=== PATIENT | female | born 1945 | race Caucasian/White ===

== ENCOUNTER → 2017-06-13 | Outpatient (CLI) | payer OTHER | LOC: NUC 08:54 | DX: M85.89 Other specified disorders of bone density and structure, multiple sites (principal); M54.9 Dorsalgia, unspecified; Z78.0 Asymptomatic menopausal state ==

== ENCOUNTER → 2017-12-19 | Outpatient (CLI) | payer OTHER ==
[~2017-12-19] MED LIST: ELIQUIS5 MG PO; FLONASE 0.05%50 MCG NASAL; PACERONE 200 M200 M1 PO; PROTONIX40 M1 PO; TOPROL XL25 MG PO; UNICOMPLEX M TA1 TA1 PO; ZYRTEC10 M4 PO
== END ==
LOC: RAD 09:22
DX: Z12.31 Encounter for screening mammogram for malignant neoplasm of breast (principal)

== ENCOUNTER → 2018-03-29 | Outpatient (CLI) | payer OTHER ==
[2018-03-29 08:20] LABS: HEMATOCRIT 41.2 % (37.0-47.0); MCH 34.1 pg (26.0-34.0); MCHC 34.1 g/dL (28.0-37.0); MCV 100.1 fL (80.0-100.0); RBC 4.12 mil/uL (4.20-5.00); RDW 13.7 % (10.5-14.5); WBC 5.5 thou/uL (4.0-11.0)
[2018-03-29 08:29] LABS: CALCIUM 9.3 mg/dL (8.5-10.1); CREATININE 0.8 mg/dL (0.6-1.0); POTASSIUM 4.8 mmol/L (3.5-5.1)
[2018-03-29 08:35] LABS: TOTAL BILIRUBIN 0.6 mg/dL (<0.1-1.0); TOTAL PROTEIN 7.1 g/dL (6.4-8.2)
== END ==
LOC: LAB 06:35 → EDSTATUS 17:42
PROVIDERS: Internal Medicine Cardiovascular Disease
DX: I48.91 Unspecified atrial fibrillation (principal)

== ENCOUNTER 2018-04-06 06:42 | Observation (INO) | payer OTHER ==
[2018-04-06] VITALS (12 sets, daily range): BP systolic 131–148; BP diastolic 51–68
[~2018-04-06] VITALS: Ht 180.3 cm; Wt 81.6 kg
--- NOTE | ~2018-04-06 | P ---
[facility] [place] [address] PROCEDURE REPORT Name: JARROD CRAWFORD Room #: 205-[facility] Joaquina#: [id number] Admission: 04/06/18 Attend Phys: Bhupinder Shearer MD Discharge: 04/07/18 Date of : 45 Report #: [id number] THIS REPORT FOR: //name// CC: Vaibhav Shearer DATE OF SERVICE: 04/06/2018 PREOPERATIVE DIAGNOSIS: Atrial fibrillation. POSTOPERATIVE DIAGNOSIS: Atrial fibrillation. HISTORY: The patient is a 73-year-old female with a history of recurrent atrial fibrillation despite antiarrhythmic drugs and is here for an ablation. PROCEDURES: 1. AFib ablation, CPT code 98263. 2. 3D mapping, CPT code 02632. 3. Intracardiac echo, CPT code 93983. ANESTHESIA: The patient underwent general anesthesia with no anesthesia related complications. DESCRIPTION OF PROCEDURE: The patient underwent informed consent. We discussed the details of the procedure including the risks, which include but not limited to bleeding, infection, vascular damage, cardiac perforation as well as stroke or UT. She understood these risks and is willing to proceed. The patient was brought to the EP laboratory in a fasting and sedated state and prepped and draped in a sterile fashion. I then injected lidocaine to the right groin and obtained access to the right femoral vein x 3, placing an 8-Swazi, 9-Swazi and 7-Swazi short sheath using the modified Seldinger technique. Next, under fluoroscopy, I placed a decapolar catheter easily in the coronary sinus and ice catheter in the right atrium. The patient's cardiac CT scan showed that there were 2 left pulmonary veins and 2 right pulmonary veins and there appeared to be a middle vein that came off the right inferior pulmonary vein. The patient was systemically heparinized and a transseptal was performed with an SL1 sheath and a Rosanky needle. The transseptal was straightforward. I then used a [employer] Camacho Lasso catheter to obtain 3D geometry of the left atrium and then, we merged this with the intracardiac ultrasound images and the cardiac CT scan. Next, I exchanged the SL1 sheath for the cryo sheath. I then isolated the left superior pulmonary vein with 2 freezes. I then turned my attention to the left inferior pulmonary vein and this isolated after 2 freezes with evidence of entrance and exit block. The right superior pulmonary vein isolated during the first freeze and I performed two 90-second freezes in this vein as attempts were close to -50. I then turned my attention to the right [address] [address] PROCEDURE REPORT Name: JARROD CRAWFORD Room #: [address] [place] [address] Divine Kunz#: [id number] Admission: 04/06/18 Attend Phys: Bhupinder Shearer MD Discharge: 04/07/18 Date of : 45 Report #: [id number] inferior pulmonary vein and this vein isolated with a single freeze at 40 seconds. I performed a single freeze at 3 minutes duration. There was never any phrenic nerve compromise while isolating the right-sided veins as evidenced by phrenic nerve pacing from the decapolar catheter placed in the subclavian. Next, all veins were reinterrogated and they remained isolated. As such, the procedure was concluded. Intracardiac ultrasound was utilized to verify the absence of an effusion. The patient received systemic protamine and once ACT was within acceptable range, catheters and sheaths were pulled and hemostasis was obtained. The patient awoke neurologically and hemodynamically intact. No complications and no significant bleeding. Pre-ablation, the patient was in sinus rhythm. Post-ablation remained in sinus rhythm as well. CONCLUSIONS: 1. Successful AFib ablation with isolation of the 4 pulmonary veins. 2. There was also evidence of isolation of the right middle vein. <ELECTRONICALLY SIGNED> By: Bhupinder Shearer MD 04/07/18 1534 1034 1245 Bhupinder Shearer MD /nt
[2018-04-06] MEDS ORDERED: PACERONE 200 M200 M1 PO (07:16)
[2018-04-06] MEDS ORDERED: ZYRTEC10 M4 PO (07:17)
[2018-04-06] MEDS ORDERED: ELIQUIS5 MG PO (07:17)
[2018-04-06] MEDS ORDERED: FLONASE 0.05%50 MCG NASAL (07:17)
[2018-04-06] MEDS ORDERED: UNICOMPLEX M TA1 TA1 PO (07:18)
[2018-04-06] MEDS ORDERED: TOPROL XL25 MG PO (07:18)
[2018-04-06] MEDS ORDERED: PROTONIX40 M1 PO (07:19)
[2018-04-06 07:38] LABS: ABSOLUTE NEUTROPHILS 3.4 thou/uL (1.4-8.2); BASOPHILS 1.2 % (0.0-2.0); EOSINOPHILS 6.3 % (0.0-3.0); HEMATOCRIT 40.4 % (37.0-47.0); HEMOGLOBIN 13.8 gm/dL (12.0-15.0); LYMPHOCYTES 24.7 % (24.0-44.0); MCH 33.7 pg (26.0-34.0); MCHC 34.1 g/dL (28.0-37.0); MONOCYTES 10.1 % (1.0-8.0); PLATELET COUNT 269 thou/uL (150-400); POLYS 57.7 % (36.0-66.0); RBC 4.08 mil/uL (4.20-5.00); RDW 13.5 % (10.5-14.5); WBC 5.8 thou/uL (4.0-11.0)
[2018-04-06 07:46] LABS: CALCIUM 9.2 mg/dL (8.5-10.1); CREATININE 0.9 mg/dL (0.6-1.0)
[2018-04-06 07:52] LABS: ALBUMIN 3.7 g/dL (3.4-5.0); TOTAL BILIRUBIN 0.5 mg/dL (<0.1-1.0); TOTAL PROTEIN 6.8 g/dL (6.4-8.2)
[2018-04-06 07:53] LABS: APTT 24.9 Seconds (24.5-32.8); PROTIME 10.2 Seconds (9.3-11.4)
[2018-04-07 04:57] VITALS: BP 134/72
[2018-04-07 07:35] VITALS: BP 140/63
[2018-04-07 10:48] VITALS: BP 140/63
== END 2018-04-07 11:27 | disposition home or self-care (01) ==
LOC: CATH 06:42 → 2N 06:46 → CATH 15:46 → 2N 04-07 11:27
PROVIDERS: Internal Medicine Cardiovascular Disease
DX: I48.0 Paroxysmal atrial fibrillation (principal); E78.00 Pure hypercholesterolemia, unspecified; I10 Essential (primary) hypertension; K21.9 Gastro-esophageal reflux disease without esophagitis; Z87.891 Personal history of nicotine dependence; Z72.89 Other problems related to lifestyle; Z98.890 Other specified postprocedural states
CPT/HCPCS: 62110; 62900; 70005

== ENCOUNTER → 2018-07-20 | Outpatient (CLI) | payer OTHER ==
[2018-07-20] VITALS (13 sets, daily range): BP systolic 151–187; BP diastolic 70–89
[~2018-07-20] VITALS: Ht 177.8 cm; Wt 81.6 kg
--- NOTE | ~2018-07-20 | PATH ---
[facility] [place] [address] PATHOLOGY RPT PROCEDURE Name: JARROD CRAWFORD Room #: REG [facility]..#: [id number] Admission: 07/20/18 Date of : 45 Discharge: Report #: [id number] Path Case #: [id number] Note [facility] Accession Number: [id number] TESTS RESULT FLAG UNITS REF RANGE LAB Clinician Provided Cytology Information No. of containers..01 Other (Miscellaneous) Source: 01 RT LOWER LOBER DIAGNOSIS: [A] 02 RIGHT LOWER LOBE, FINE NEEDLE ASPIRATION SUSPICIOUS FOR MALIGNANCY. THIS INTERPRETATION INCLUDES EVALUATION OF A CELL BLOCK. NUMEROUS GROUPS OF ATYPICAL CELLS, SEE COMMENT: Comment: Examination shows scattered groups of atypical cells in three dimensional clusters. The nuclei show show subtle atypia. Smears performed have most cells present with much air-drying artifact. These cells are similar to the ones noted on biopsy tissue designated "right lower lobe mass", [id number]. Findings noted in this sample are likely suspicious for adenocarcinoma. Please refer to a separate report for details on the biopsy tissue. Signed out by: 02 Gogo Aleman MD, Pathologist NPI- [id number] Performed by: Manasa Buenrostro, Audio Visual Equipment Rental Clerk ([facility]) Gross description: 01 19ML, PINK, CLEAR /LCS FLAG LEGEND: L-Low Normal,H-High Normal,LL-Alert Low,HH-Alert High <-Panic Low,>-Panic High,A-Abnormal,AA-Critical Abnormal Performed at: [address] [place] [address] Ki Robertson MD, [address] [address] Gogo Aleman MD, Performed at: [address], [place], [place] [id number] MD Ki Robertson MD Phone: [phone]
--- NOTE | ~2018-07-20 | PATH ---
[facility] [place] [address] PATHOLOGY RPT PROCEDURE Name: JARROD CRAWFORD Room #: REG SUNI Kunz#: [id number] Admission: 07/20/18 Date of : 45 Discharge: Report #: [id number] Path Case #: [id number] [facility] Accession Number: [id number] . 01 Material submitted: . RIGHT LOWER LOBE LUNG MASS . 01 Clinical history: . Right lower lobe mass . 02 Diagnosis: Lung, right lower lobe mass, needle core biopsy: - ADENOCARCINOMA WITH LEPIDIC FEATURES AND FOCAL PAPILLARY PATTERN. (IUV:shay; 07/21/2018) QMS/07/21/2018 . 02 Comment: Scattered rare areas highly suspicious for invasion are identified. The needle core biopsy tissue predominantly is comprised of an adenocarcinoma of lepidic pattern. . Co-review: Dr. Torie Burton . Findings are telephoned to Dr. Romero's nurse, MsPatrick Leslie, at 1:20 p.m. on 07/21/2018. . (IUV:shay; 07/21/2018) . 02 Electronically signed: . Gogo Aleman MD, Pathologist NPI- [id number] . 01 Gross description: . Received in formalin labeled "Jarrod Crawford, lung BX," are 4 distinct needle cores of lara soft tissue any from 0.2 to 0.7 cm in length and measuring less than 0.1 cm each in diameter. The specimen is submitted entirely in cassette A1 and A2. (TSD; 07/20/2018) TOB/TOB . 02 Pathologist provided ICD-10: C34.31 . 02 CPT . 730320 Specimen Comment: A courtesy copy of this report has been sent to Specimen Comment: [phone], , [place] [address] PATHOLOGY RPT PROCEDURE Name: JARROD CRAWFORD Room #: REG CLI Joaquina#: [id number] Admission: 07/20/18 Date of : 45 Discharge: Report #: [id number] Path Case #: [id number] Specimen Comment: Report sent to , DR GREGORY / DR CONNOR Performed at: 01 [facility] [place] [address], [place], [place] [address] MD Ki Robertson MD Phone: [phone] Performed at: [address] [id number] MD Gogo Aleman MD Phone: [phone]
[2018-07-20 08:43] LABS: HEMATOCRIT 41.1 % (37.0-47.0); MCH 33.1 pg (26.0-34.0); MCV 97.5 fL (80.0-100.0); RBC 4.22 mil/uL (4.20-5.00); RDW 13.3 % (10.5-14.5); WBC 5.4 thou/uL (4.0-11.0)
[2018-07-20 08:53] LABS: CALCIUM 9.1 mg/dL (8.5-10.1); CREATININE 0.7 mg/dL (0.6-1.0); POTASSIUM 3.8 mmol/L (3.5-5.1)
[2018-07-20 08:59] LABS: APTT 23.6 Seconds (24.5-32.8)
== END | disposition home or self-care (01) ==
LOC: CAT 07:52
PROVIDERS: Radiology Vascular & Interventional Radiology
DX: C34.31 Malignant neoplasm of lower lobe, right bronchus or lung (principal); I10 Essential (primary) hypertension; I48.91 Unspecified atrial fibrillation; K21.9 Gastro-esophageal reflux disease without esophagitis; E78.5 Hyperlipidemia, unspecified; Z79.01 Long term (current) use of anticoagulants; Z85.828 Personal history of other malignant neoplasm of skin; Z87.19 Personal history of other diseases of the digestive system; Z79.899 Other long term (current) drug therapy; Z98.890 Other specified postprocedural states; Z87.891 Personal history of nicotine dependence

== ENCOUNTER → 2018-07-31 | Outpatient (CLI) | payer OTHER | LOC: ULTRA 11:33 | DX: E04.2 Nontoxic multinodular goiter (principal); R91.8 Other nonspecific abnormal finding of lung field; I10 Essential (primary) hypertension; K21.9 Gastro-esophageal reflux disease without esophagitis ==

== ENCOUNTER → 2018-08-17 | Outpatient (CLI) | payer OTHER | LOC: MRI 09:25 | DX: I67.82 Cerebral ischemia (principal) ==

== ENCOUNTER 2018-09-07 13:24 | Inpatient (IN) | payer OTHER ==
[~2018-09-07] VITALS: Ht 177.8 cm; Wt 81.6 kg
--- NOTE | ~2018-09-07 | HC ---
[facility] [place] [address] CONSULTATION Name: JARROD CRAWFORD Room #: 222-P [facility] IN M.R.#: [id number] Admission: 09/07/18 Attend Phys: Trina Kirkpatrick Discharge: Date of : 45 Report #: [id number] THIS REPORT FOR: //name// CC: Trina Virk DATE OF SERVICE: 09/08/2018 PRIMARY CARE PHYSICIAN: Vaibhav Virk DO. REFERRING PHYSICIAN: Dr. Almodovar. REASON FOR REFERRAL: Pneumonia. HISTORY OF PRESENT ILLNESS: The patient is a 73-year-old white female who was electively admitted with increasing cough, dyspnea, productive of purulent sputum. Chest x-ray shows bibasilar patchy infiltrates. The patient is known to Dr. Romero. She was originally diagnosed with adenocarcinoma of the right lower lobe. CT chest performed 03/29/2018 showed a 1 x 1.8 cm noncalcified soft tissue density in the right lower lobe. Another soft tissue density measuring 0.8 x 2.6 cm nodule seen in the left lower lobe. Needle biopsy revealed adenocarcinoma, papular and patent. She has been followed by Dr. Fitzpatrick who is currently undergoing investigative study for possible treatment. Plans are to do genetic studies prior to treatment. She was in her usual state of health until few days prior to presentation. She started to develop congestion, dyspnea, cough productive of purulent sputum. Chest x-ray as mentioned above. 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 History of atrial fibrillation, allergic rhinitis, diverticulosis, gastroesophageal reflux disease, hyperlipidemia, hypertension, tubular adenoma of the colon. PAST SURGICAL HISTORY: Notable for prior left biopsy pathology felt to be unremarkable, ablation for atrial fibrillation, cardioversion x 2, hemorrhoidectomy, spinal cord decompression and bilateral tubal ligation. ALLERGIES: None to medications. HOME MEDICATIONS: Reviewed. This include Eliquis, Zyrtec, vitamin supplements, Florinef, fluticasone nasal spray, Toprol-XL, multivitamins, omega-3, Protonix. FAMILY HISTORY: Notable for multiple sclerosis in a sister, myocardial [facility] [address] [place] [address] CONSULTATION Name: JARROD CRAWFORD Room #: 222-P [facility] IN M.R.#: [id number] Admission: 09/07/18 Attend Phys: Trina Kirkpatrick Discharge: Date of : 45 Report #: [id number] infarction in a sister, mother and father . SOCIAL HISTORY: Has smoked about a pack a day for 8 years, quit in 1975. She drinks socially. REVIEW OF SYSTEMS: As mentioned above, otherwise 10-point system review negative. PHYSICAL EXAMINATION: GENERAL: She is awake, alert, in no apparent distress. VITAL SIGNS: Temperature 98 degrees Fahrenheit, pulse is 90, respiratory rate is 19, blood pressure 130/55 mmHg, saturation 98%. HEENT: Normocephalic, atraumatic. NECK: Supple, without lymphadenopathy or thyromegaly. CHEST: Breath sounds are decreased bilaterally, coarse breath sounds bilaterally. CARDIOVASCULAR: Normal S1, S2. There are no murmurs or gallop. There is no JVD. There is no carotid bruit. Pulses are 2+/4+ bilaterally. ABDOMEN: Soft, nontender, no organomegaly or masses felt. GENITOURINARY: Deferred. RECTAL: Deferred. EXTREMITIES: There is no edema, cyanosis or clubbing. LABORATORY DATA: Chest x-ray again shows patchy bibasilar infiltrates. Influenza A and B swab is negative. Electrolytes are normal. Liver enzymes are normal. WBC 14,500, hemoglobin is normal, platelets are normal, no evidence of bandemia. IMPRESSION: 1. Progressive productive cough, bibasilar infiltrates in this 73-year-old white female. Symptoms suggest probable viral upper respiratory tract infection. Cannot rule out pneumonia. 2. Adenocarcinoma of the lung, papillary pattern, recent CT needle biopsy, prior CT chest showed nodule involving the right lower lobe, left lower lobe. Plans are for further investigational mutation studies prior to proceeding with treatment. 3. Atrial fibrillation. 4. Gastroesophageal reflux disease. 5. Hypertension. RECOMMENDATION: Agree with current plans. Broad spectrum antibiotics, decongestants, DVT and GI prophylaxis. She will need to follow up with oncologist once she is improved for further ongoing evaluation and treatment soon. [address] [address] CONSULTATION Name: JARROD CRAWFORD Room #: 222-P ADM IN M.R.#: [id number] Admission: 09/07/18 Attend Phys: Trina Kirkpatrick Discharge: Date of : 45 Report #: [id number] Thank you for this consultation. <ELECTRONICALLY SIGNED> By: Jerome Alvarez MD 09/09/18 1538 1522 0216 Jerome Alvarez MD /nt
[2018-09-07 14:00] VITALS: BP 156/67
[2018-09-07] MEDS ORDERED: OMEGA-31000 M1 PO (14:20)
[2018-09-07 15:09] LABS: ABSOLUTE NEUTROPHILS 12.7 thou/uL (1.4-8.2); BASOPHILS 0.1 % (0.0-2.0); HEMATOCRIT 38.6 % (37.0-47.0); HEMOGLOBIN 13.3 gm/dL (12.0-15.0); LYMPHOCYTES 4.8 % (24.0-44.0); MCH 33.2 pg (26.0-34.0); MCHC 34.4 g/dL (28.0-37.0); MCV 96.7 fL (80.0-100.0); MONOCYTES 7.1 % (1.0-8.0); PLATELET COUNT 269 thou/uL (150-400); RBC 3.99 mil/uL (4.20-5.00); RDW 13.2 % (10.5-14.5); WBC 14.5 thou/uL (4.0-11.0)
[2018-09-07 15:19] LABS: URINE BILIRUBIN NEGATIVE (Negative); URINE BLOOD NEGATIVE (Negative); URINE CLARITY CLEAR; URINE COLOR YELLOW; URINE GLUCOSE-RANDOM* NEGATIVE (Negative); URINE KETONES 2+ (Negative); URINE LEUKOCYTES-REFLEX NEGATIVE (Negative); URINE NITRITE-REFLEX NEGATIVE (Negative); URINE PROTEIN (DIPSTICK) NEGATIVE (Negative); URINE UROBILINOGEN 0.2 E.U./dl (0.2-1.0)
[2018-09-07 15:32] VITALS: BP 156/74
[2018-09-07 15:50] LABS: ALBUMIN 3.6 g/dL (3.4-5.0); CALCIUM 9.1 mg/dL (8.5-10.1); CREATININE 0.8 mg/dL (0.6-1.0); MAGNESIUM 1.7 mg/dL (1.8-2.4); POTASSIUM 3.5 mmol/L (3.5-5.1); TOTAL BILIRUBIN 0.7 mg/dL (<0.1-1.0); TOTAL PROTEIN 7.5 g/dL (6.4-8.2)
[2018-09-07] MEDS ORDERED: LUTEIN-ZEAXANT1 EACH PO (17:32)
[2018-09-07 20:45] VITALS: BP 125/55
[2018-09-07 22:37] VITALS: BP 125/55
[2018-09-08 00:25] VITALS: BP 117/46
[2018-09-08 04:28] VITALS: BP 134/55
[2018-09-08 08:10] VITALS: BP 133/55
[2018-09-08 20:28] VITALS: BP 149/81
[2018-09-09 07:46] VITALS: BP 149/76
[2018-09-09 19:25] VITALS: BP 150/59
[2018-09-10 07:23] VITALS: BP 167/81
[2018-09-10 22:30] VITALS: BP 151/73
[2018-09-11 08:12] LABS: HEMATOCRIT 37.6 % (37.0-47.0); MCH 33.3 pg (26.0-34.0); MCHC 34.4 g/dL (28.0-37.0); MCV 96.7 fL (80.0-100.0); RBC 3.89 mil/uL (4.20-5.00); RDW 13.6 % (10.5-14.5); WBC 14.2 thou/uL (4.0-11.0)
[2018-09-11 08:26] LABS: ALBUMIN 3.4 g/dL (3.4-5.0); CALCIUM 9.3 mg/dL (8.5-10.1); CREATININE 0.8 mg/dL (0.6-1.0); POTASSIUM 3.6 mmol/L (3.5-5.1); TOTAL BILIRUBIN 0.3 mg/dL (<0.1-1.0); TOTAL PROTEIN 7.6 g/dL (6.4-8.2)
[2018-09-11 08:39] VITALS: BP 143/69
[2018-09-11] MEDS ORDERED: LEVAQUIN 750 M750 MG PO (10:29)
[2018-09-11] MEDS ORDERED: VENTOLIN HFA 1818 GM INH (10:30)
[2018-09-11 13:03] VITALS: BP 143/68
== END 2018-09-11 14:38 | disposition home or self-care (01) | DRG 871 ==
LOC: 2N 13:24 → SICU 13:24 → ENTRNSPT 09-11 14:09 → EDTRNSPTSTS 09-11 14:11 → SICU 09-11 14:38
PROVIDERS: Hospitalist; Nurse Practitioner
DX: A41.9 Sepsis, unspecified organism (principal); J18.9 Pneumonia, unspecified organism; C34.92 Malignant neoplasm of unspecified part of left bronchus or lung; C34.91 Malignant neoplasm of unspecified part of right bronchus or lung; I48.91 Unspecified atrial fibrillation; I11.0 Hypertensive heart disease with heart failure; K57.90 Diverticulosis of intestine, part unspecified, without perforation or abscess without bleeding; K21.9 Gastro-esophageal reflux disease without esophagitis; E78.5 Hyperlipidemia, unspecified; I50.9 Heart failure, unspecified; E83.42 Hypomagnesemia; Z82.0 Family history of epilepsy and other diseases of the nervous system; Z82.49 Family history of ischemic heart disease and other diseases of the circulatory system; Z87.891 Personal history of nicotine dependence; Z79.899 Other long term (current) drug therapy
CPT/HCPCS: 10797; 15002

== ENCOUNTER → 2018-12-21 | Outpatient (CLI) | payer OTHER ==
[~2018-12-21] MED LIST changes: +LEVAQUIN 750 M750 MG PO; +LUTEIN-ZEAXANT1 EACH PO; +OMEGA-31000 M1 PO; +VENTOLIN HFA 1818 GM INH
== END ==
LOC: RAD 14:34
DX: Z12.31 Encounter for screening mammogram for malignant neoplasm of breast (principal)

== ENCOUNTER → 2019-12-31 | Outpatient (CLI) | payer OTHER | LOC: RAD 10:50 | DX: Z12.31 Encounter for screening mammogram for malignant neoplasm of breast (principal) ==

== ENCOUNTER → 2020-01-16 | Outpatient (CLI) | payer OTHER | LOC: SJCVCIMAG 11:18 | PROVIDERS: ATTEND Internal Medicine Cardiovascular Disease | DX: I08.0 Rheumatic disorders of both mitral and aortic valves (principal); I48.0 Paroxysmal atrial fibrillation; I10 Essential (primary) hypertension; K21.9 Gastro-esophageal reflux disease without esophagitis; E78.5 Hyperlipidemia, unspecified; R94.31 Abnormal electrocardiogram [ECG] [EKG]; I48.91 Unspecified atrial fibrillation; Z87.891 Personal history of nicotine dependence; Z72.89 Other problems related to lifestyle; Z79.82 Long term (current) use of aspirin; Z79.899 Other long term (current) drug therapy ==

== ENCOUNTER → 2020-11-11 | Outpatient (CLI) | payer OTHER | LOC: SJCVC 09:55 | PROVIDERS: ATTEND Internal Medicine Cardiovascular Disease | DX: I49.8 Other specified cardiac arrhythmias (principal); I48.0 Paroxysmal atrial fibrillation; C80.1 Malignant (primary) neoplasm, unspecified; I10 Essential (primary) hypertension; E78.00 Pure hypercholesterolemia, unspecified; K21.9 Gastro-esophageal reflux disease without esophagitis; E78.5 Hyperlipidemia, unspecified; K57.90 Diverticulosis of intestine, part unspecified, without perforation or abscess without bleeding; Z87.891 Personal history of nicotine dependence ==

== ENCOUNTER → 2021-01-06 | Outpatient (CLI) | payer OTHER | LOC: BC 09:13 | PROVIDERS: ATTEND Family Medicine | DX: Z12.31 Encounter for screening mammogram for malignant neoplasm of breast (principal) ==

== ENCOUNTER 2021-06-03 10:50 | Inpatient (IN) | payer OTHER ==
[~2021-06-03] VITALS: Ht 180.3 cm; Wt 86.4 kg
--- NOTE | ~2021-06-03 | EMS ---
[address] [address] EMS Patient Care Report Name: JARROD CRAWFORD Room #: 202-P ADM IN M.R.#: [id number] Admission: 06/03/21 Attend Phys: Silas Small MD Discharge: Date of : 45 Report #: [id number] THIS REPORT FOR: //name// Report Transmitted: 06/04/2021 06:54 EMS Care Summary [facility] MED-ACT Incident [id number] @ 06/03/2021 09:58 Incident Location [address] [place] [address] Patient JARROD CRAWFORD Female, 76 Years 1945 Patient Address [address] [place] [address] Patient History Hypertension (HTN),Lung Cancer,Atrial Fibrillation, Patient Allergies No known allergies, Patient Medications Pantoprazole, Aspirin, Metoprolol, Zofran, Chief Complaint Weakness Disposition Transported No Lights/[place] Dispatch Reason Unconscious/Fainting Transported To [facility] Narrative M1145 found the pt lying in bed in no apparent distress being attended to by OPFD. Report from OPFD was that the pt has been having weakness for about 2 weeks and is unable to get up. The family contacted the pt's doctor who wanted the pt sent to [facility] for evaluation. The pt stated that [address] [address] EMS Patient Care Report Name: JARROD CRAWFORD Room #: 202-P ADM IN M.R.#: [id number] Admission: 06/03/21 Attend Phys: Silas Small MD Discharge: Date of : 45 Report #: [id number] she is unable to get out of bed and also complains of some abdominal tenderness. The pt stated that she has had the abdominal tenderness for a long time. She described the tenderness as a squeezing feeling in her stomach. The pt denies Initial Vitals @10:12P: 96,SpO2: 83,ND Suspected: false @10:39P: 95,R: 12,BP: 114/68,Glucose: 156,SpO2: 98, @10:27P: 95,R: 12,BP: 109/58,Temp: 98.3F,SpO2: 99, @10:09P: 98,R: 12,BP: 109/69,Pain: 2/10,GCS: 15,SpO2: 85,Revised Trauma: 12, Impression Generalized Weakness Procedures @10:1212-Lead ECGResponse: UnchangedSucceeded@10:27Saline Lock 10cc (20 ga) Site: Hand-RightResponse: UnchangedSucceeded@10:25Oxygen FlowRate: 4 Device: Nasal Cannula (NC) Response: UnchangedSucceeded Timeline 09:56,Call Received 09:56,Psap Call 09:58,Dispatched 09:59,En Route 10:06,On Scene 10:08,At Patient 10:09,BP: 109/69 M,PULSE: 98,RR: 12 R,SPO2: 85 Ox,ETCO2: ,BG: ,PAIN: 2,GCS: 15, 10:12,12-Lead ECG,Response: UnchangedSucceeded, 10:12,BP: / M,PULSE: 96,RR: R,SPO2: 83 Ox,ETCO2: ,BG: ,PAIN: ,GCS: , 10:25,Oxygen FlowRate: 4 Device: Nasal Cannula (NC) Response: UnchangedSucceeded, 10:26,Depart Scene 10:27,Saline Lock 10cc 20 ga Site: Hand-Right,Response: UnchangedSucceeded, 10:27,BP: 109/58 M,PULSE: 95,RR: 12 R,SPO2: 99 Ox,ETCO2: ,BG: ,PAIN: ,GCS: , 10:39,BP: 114/68 M,PULSE: 95,RR: 12 R,SPO2: 98 Ox,ETCO2: ,B,PAIN: ,GCS: , 10:48,At Destination 11:16,Call Closed Disclaimer v1.1 Copyright 2020 [employer] This EMS Care Summary contains data elements from the applicable legal record (which may be displayed differently). It is designed to provide pertinent information for the following purposes: continuity of care, clinical quality, and state data reporting. The complete legal record is available to ED staff and administrators of the receiving hospital in [employer]'s Patient Tracker. All data [address] [address] EMS Patient Care Report Name: JARROD CRAWFORD Room #: 202-P ADM IN M.R.#: [id number] Admission: 06/03/21 Attend Phys: Silas Small MD Discharge: Date of : 45 Report #: [id number] is provided "as is."
--- NOTE | ~2021-06-03 | EMS ---
[address] [address] EMS Patient Care Report Name: JARROD CRAWFORD Room #: 202-P [facility] IN M.R.#: [id number] Admission: 06/03/21 Attend Phys: Silas Small MD Discharge: 06/11/21 Date of : 45 Report #: [id number] THIS REPORT FOR: //name// Report Transmitted: 06/12/2021 17:22 EMS Care Summary [facility] MED-ACT Incident [id number] @ 06/03/2021 09:58 Incident Location [address] [place] [address] Patient JARROD CRAWFORD Female, 76 Years 1945 Patient Address [address] [place] [address] Patient History Hypertension (HTN),Lung Cancer,Atrial Fibrillation, Patient Allergies No known allergies, Patient Medications Pantoprazole, Aspirin, Metoprolol, Zofran, Chief Complaint Weakness Disposition Transported No Lights/[place] Dispatch Reason Unconscious/Fainting Transported To [facility] Narrative M1145 found the pt lying in bed in no apparent distress being attended to by OPFD. Report from OPFD was that the pt has been having weakness for about 2 weeks and is unable to get up. The family contacted the pt's doctor who wanted the pt sent to [facility] for evaluation. The pt stated that [address] [address] EMS Patient Care Report Name: JARROD CRAWFORD Room #: 202-P [facility] IN .R.#: [id number] Admission: 06/03/21 Attend Phys: Silas Small MD Discharge: 06/11/21 Date of : 45 Report #: [id number] she is unable to get out of bed and also complains of some abdominal tenderness. The pt stated that she has had the abdominal tenderness for a long time. She described the tenderness as a squeezing feeling in her stomach. The pt denies Appended: The pt denies any chest pain, shortness of breath, headaches, blurred vision, Nausea/vomiting, diarrhea, recent illness, or recent trauma. The pt was transported to [facility] in a position of comfort. The pt had no new complaints en route and with hand off to [facility] ED RN. The pt was moved from EMS cot to ED bed via a sheet drag from EMS Cot. Appended: In the previous addendum the narrative was supposed to say the pt was transported to [facility] in a position of comfort. The pt had no new complaints en route and with hand off to [facility] ED RN. The pt was moved from EMS cot to ED bed via a sheet drag from EMS cot. Initial Vitals @10:12P: 96,SpO2: 83,NM Suspected: false @10:39P: 95,R: 12,BP: 114/68,Glucose: 156,SpO2: 98, @10:27P: 95,R: 12,BP: 109/58,Temp: 98.3F,SpO2: 99, @10:09P: 98,R: 12,BP: 109/69,Pain: 2/10,GCS: 15,SpO2: 85,Revised Trauma: 12, Impression Generalized Weakness Procedures @10:1212-Lead ECGResponse: UnchangedSucceeded@10:27Saline Lock 10cc (20 ga) Site: Hand-RightResponse: UnchangedSucceeded@10:25Oxygen FlowRate: 4 Device: Nasal Cannula (NC) Response: UnchangedSucceeded Timeline 09:56,Call Received 09:56,Psap Call 09:58,Dispatched 09:59,En Route 10:06,On Scene 10:08,At Patient 10:09,BP: 109/69 M,PULSE: 98,RR: 12 R,SPO2: 85 Ox,ETCO2: ,BG: ,PAIN: 2,GCS: 15, 10:12,12-Lead ECG,Response: UnchangedSucceeded, 10:12,BP: / M,PULSE: 96,RR: R,SPO2: 83 Ox,ETCO2: ,BG: ,PAIN: ,GCS: , 10:25,Oxygen FlowRate: 4 Device: Nasal Cannula (NC) Response: UnchangedSucceeded, 10:26,Depart Scene 10:27,Saline Lock 10cc 20 ga Site: Hand-Right,Response: UnchangedSucceeded, 10:27,BP: 109/58 M,PULSE: 95,RR: 12 R,SPO2: 99 Ox,ETCO2: ,BG: ,PAIN: ,GCS: , 10:39,BP: 114/68 M,PULSE: 95,RR: 12 R,SPO2: 98 Ox,ETCO2: ,B,PAIN: ,GCS: , [facility] [address] [place] [address] EMS Patient Care Report Name: JARROD CRAWFORD Room #: 202-P [facility] IN M.R.#: [id number] Admission: 06/03/21 Attend Phys: Silas Small MD Discharge: 06/11/21 Date of : 45 Report #: [id number] 10:48,At Destination 11:16,Call Closed Disclaimer v1.1 Copyright 2020 [employer] This EMS Care Summary contains data elements from the applicable legal record (which may be displayed differently). It is designed to provide pertinent information for the following purposes: continuity of care, clinical quality, and state data reporting. The complete legal record is available to ED staff and administrators of the receiving hospital in [employer]'s Patient Tracker. All data is provided "as is."
[2021-06-03 10:51] VITALS: BP 115/50
[2021-06-03 11:40] LABS: ABSOLUTE NEUTROPHILS 4.4 thou/uL (1.4-8.2); BASOPHILS 0.1 % (0.0-2.0); EOSINOPHILS 1.1 % (0.0-3.0); HEMATOCRIT 21.6 % (37.0-47.0); HEMOGLOBIN 7.4 gm/dL (12.0-15.0); LYMPHOCYTES 12.4 % (24.0-44.0); MCH 34.4 pg (26.0-34.0); MCHC 34.1 g/dL (28.0-37.0); MONOCYTES 12.2 % (1.0-8.0); POLYS 74.2 % (36.0-66.0); RBC 2.14 mil/uL (4.20-5.00); RDW 14.9 % (10.5-14.5)
[2021-06-03 11:52] LABS: CALCIUM 8.8 mg/dL (8.5-10.1); CREATININE 1.5 mg/dL (0.6-1.0); POTASSIUM 4.6 mmol/L (3.5-5.1)
[2021-06-03 12:02] LABS: ALBUMIN 2.4 g/dL (3.4-5.0); TOTAL BILIRUBIN 0.6 mg/dL (0.2-1.0); TOTAL PROTEIN 6.4 g/dL (6.4-8.2); URIC ACID* 7.4 mg/dL (2.6-6.0)
[2021-06-03 12:04] LABS: TROPONIN-I 1.02 ng/mL (<0.06)
[2021-06-03 12:30] LABS: PLATELET COUNT 46 thou/uL (150-400)
[2021-06-03 12:31] LABS: PLATELET ESTIMATE DECREASED
--- NOTE | 2021-06-03 13:09 | EKG ---
[place] [place] [address] ELECTROCARDIOGRAM REPORT Name: JARROD CRAWFORD [id number] Admission: 06/03/21 Attend Phys: Discharge: Date of : 45 Report #: [id number] [facility] ED Test Date: 2021-06-03 Test Time: 11:57:26 Pat Name: JARROD CRAWFORD Department: Room: Gender: F Outfitter Cabin: ernst : 1945 Requested By: Alcides Penn Order Number: [id number] MD: Lebron Marcus Measurements Intervals [place] Rate: 87 P: 51 FL: 173 QRS: 23 QRSD: 76 T: 59 QT: 350 QTc: 421 Interpretive Statements Sinus rhythm Atrial premature complexes Abnormal R-wave progression, early transition Baseline wander in lead(s) III,aVL Compared to ECG 11/13/2010 11:44:55 Atrial premature complex(es) now present Electronically Signed On 06-03-2021 13:08:54 CDT by Lebron Marcus [email or web address] <ELECTRONICALLY SIGNED> By: Lebron Marcus MD, [facility] 06/03/21 1308 1157 1157 Lebron Marcus MD, [facility] /EPI
[2021-06-03 13:11] LABS: URINE BILIRUBIN NEGATIVE (Negative); URINE BLOOD NEGATIVE (Negative); URINE CLARITY CLEAR; URINE COLOR YELLOW; URINE GLUCOSE-RANDOM* NEGATIVE (Negative); URINE KETONES NEGATIVE (Negative); URINE LEUKOCYTES-REFLEX NEGATIVE (Negative); URINE NITRITE-REFLEX NEGATIVE (Negative); URINE PROTEIN (DIPSTICK) NEGATIVE (Negative); URINE UROBILINOGEN 0.2 E.U./dl (0.2-1.0)
[2021-06-03 16:03] VITALS: BP 122/46
--- NOTE | 2021-06-03 16:10 | NUR ---
CARDIOLOGY ELECTRICAL POWER ENGINEER AT BEDSIDE
[2021-06-03 16:41] VITALS: BP 117/42
[2021-06-03 17:54] LABS: % SATURATION 28 % (20-39); IRON 53 ug/dL (50-170); TIBC 187 ug/dL (250-450)
[2021-06-03 18:18] LABS: FOLIC ACID 53.6 ng/mL (8.6-58.9)
[2021-06-03 19:55] VITALS: BP 128/44
[2021-06-03 23:38] VITALS: BP 134/54
[2021-06-04 03:01] LABS: CALCIUM 8.2 mg/dL (8.5-10.1); CREATININE 1.2 mg/dL (0.6-1.0); MAGNESIUM 2.2 mg/dL (1.8-2.4); POTASSIUM 4.5 mmol/L (3.5-5.1)
[2021-06-04 03:07] LABS: HEMATOCRIT 22.1 % (37.0-47.0); HEMOGLOBIN 7.4 gm/dL (12.0-15.0); MCH 35.3 pg (26.0-34.0); MCHC 33.6 g/dL (28.0-37.0); MCV 105.3 fL (80.0-100.0); PLATELET COUNT 69 thou/uL (150-400); RDW 15.7 % (10.5-14.5)
[2021-06-04 03:32] VITALS: BP 136/69
[2021-06-04 06:23] LABS: ABSOLUTE NEUTROPHILS 4.7 thou/uL (1.4-8.2); MACROCYTES 1+; PLATELET ESTIMATE DECREASED
[2021-06-04 06:24] LABS: ANISOCYTOSIS 1+; POIKILOCYTOSIS 1+
[2021-06-04 08:28] VITALS: BP 120/48
--- NOTE | 2021-06-04 09:26 | 2DMMODE ---
[facility] [place] [address] 2 D/M-MODE ECHOCARDIOGRAM Name: JARROD CRAWFORD Room #: 202-P ADM IN M.R.#: [id number] Admission: 06/03/21 Attend Phys: Silas Small MD Discharge: Date of : 45 Report #: [id number] THIS REPORT FOR: cc: Vaibhav Virk Louis D. DO Lammoglia, Francisco J. MD ~ APPROVED REPORT Study performed: 06/04/2021 08:40:08 EXAM: Comprehensive 2D, Doppler, and color-flow Echocardiogram Patient Location: Bedside Room #: 202 Status: routine BSA: 2.03 HR: 96 bpm BP: 136/69 mmHg Rhythm: NSR Other Information Study Quality: Good Indications Atrial Fibrillation Elevated troponin. Hx: Afib/ablation, HTN, HLP. 2D Dimensions RVDd: 31.15 mm IVSd: 9.98 (7-11mm) LVOT Diam: 19.89 (18-24mm) LVDd: 41.26 mm PWd: 9.44 (7-11mm) Ascending Ao: 27.66 (22-36mm) LVDs: 27.23 (25-40mm) Left Atrium: 37.24 (27-40mm) Aortic Root: 30.34 mm Volumes Left Atrial Volume (Systole) Single Plane 4CH: 46.13 mL Single Plane 2CH: 45.33 mL LA ESV Index: 23.00 mL/m2 Aortic Valve AoV Peak Jamal.: 1.80 m/s AO Peak Gr.: 12.90 mmHg LVOT Max P.63 mmHg [facility] [address] [address] 2 D/M-MODE ECHOCARDIOGRAM Name: JARROD CRAWFORD Room #: 202-P [facility] IN [facility].#: [id number] Admission: 06/03/21 Attend Phys: Silas Small MD Discharge: Date of : 45 Report #: [id number] LVOT Max V: 1.38 m/s ROBERT Vmax: 2.39 cm2 Mitral Valve E/A Ratio: 1.2 MV Decel. Time: 190.05 ms MV E Max Jamal.: 0.97 m/s MV A Jamal.: 0.82 m/s MV PHT: 55.11 ms IVRT: 51.90 ms Pulmonary Valve PV Peak Jamal.: 1.20 m/s PV Peak Gr.: 5.73 mmHg Pulmonary Vein P Vein S: 0.39 m/s P Vein D: 0.31 m/s P Vein S/D Ratio: 1.26 Tricuspid Valve TR Peak Jamal.: 3.15 m/s RAP Estimate: 5.00 mmHg TR Peak Gr.: 40.00 mmHg PA Pressure: 45.00 mmHg Left Ventricle The left ventricle is normal size. There is normal LV segmental wall motion. There is normal left ventricular wall thickness. Left ventricular systolic function is normal. LVEF is 65%. Moderate diastolic dysfunction is present (pseudonormal filling). Right Ventricle The right ventricle is normal size. The right ventricular systolic function is normal. Atria The left atrium size is normal. The right atrium size is normal. Aortic Valve The aortic valve is normal in structure. No aortic regurgitation is present. There is no aortic valvular stenosis. Mitral Valve The mitral valve is normal in structure. Mild mitral regurgitation. No evidence of mitral valve stenosis. [facility] [address] [place] [address] 2 D/M-MODE ECHOCARDIOGRAM Name: JARROD CRAWFORD Room #: 202-P [facility] IN M.R.#: [id number] Admission: 06/03/21 Attend Phys: Silas Small MD Discharge: Date of : 45 Report #: [id number] Tricuspid Valve The tricuspid valve is normal in structure. Mild tricuspid regurgitation. Estimated PAP is 45mmHg. Pulmonic Valve The pulmonary valve is normal in structure. There is no pulmonic valvular regurgitation. Great Vessels The aortic root is normal in size. The ascending aorta is normal in size. IVC is normal in size and collapses >50% with inspiration. Pericardium There is no pericardial effusion. <Conclusion> The left ventricle is normal size. There is normal LV segmental wall motion. LVEF is 65%. The aortic valve is normal in structure. The mitral valve is normal in structure. Mild mitral regurgitation. The tricuspid valve is normal in structure. Mild tricuspid regurgitation. Estimated PAP is 45mmHg. The pulmonary valve is normal in structure. The aortic root is normal in size. There is no pericardial effusion. <ELECTRONICALLY SIGNED> By: Darius Lunsford MD 06/04/21925 5 5 Darius Lunsford MD /INF
[2021-06-04 10:43] LABS: APTT 23.9 Seconds (24.5-32.8); INR 1.2
--- NOTE | 2021-06-04 14:00 | NUR ---
ASSESSMENT: CM REVIEWED CHART AND ATTEMPTED TO MEET WITH PATIENT AT THE BEDSIDE BUT CONTINUES TO FALL ASLEEP. CM CONTACTED PATIENTS TO DISCUSS FURTHER INFORMATION. PT WAS ADMITTED DUE TO POSSIBLE NSTEMI,DEBILITY AND WEAKNESS, ANEMIA, HX OF AFIB. PT HAS HX OF METASTATIC LUNG CANCER AND RECEIVING CHEMO. PT IS HAS ANEMIA AND GETTING A TRANSFUSION OF ONE UNIT PRBC. PT LIVES IN A HOUSE WITH HER . PT WAS PRETTY INDEPENDENT A FEW WEEKS PRIOR BUT GETTING PROGRESSIVELY WEAK. REPORTS SHE HAS A CANE AND WALKER AT HOME. PT DOES NOT CURRENTLY HAVE HOME HEALTH AT THIS TIME AND HE DENIES HER HAVING A POST ACUTE CARE STAY IN THE PAST. CM DISCUSSED PATIENT WILL LIKELY NEED HH VS POST ACUTE CARE STAY AT DISCHARGE. PTS STATING PATIENT JUST GOT HERE AND WE WILL DISCUSS ONCE SHE IS FEELING BETTER. CM WILL CONTINUE TO FOLLOW TO ASSIST NEEDED.
[2021-06-04 15:12] VITALS: BP 140/47; BP 151/78
[2021-06-04 15:26] VITALS: BP 145/55
[2021-06-04 16:42] VITALS: BP 141/58
[2021-06-04 19:39] VITALS: BP 148/47
--- NOTE | 2021-06-04 21:05 | NUR ---
PATIENT REMAINS SINUS TACH ON THE MONITOR. DROWSY THROUGH OUT THE THE DAY, REMAINS WEAK. WORKED WITH PT/OT. VOICES CONSTANT PAIN. PAIN MEDICATIONS GIVEN PER EMAR. 1 UNIT PRBC TRANSFUSED PER ORDERS. REMAINS ON CONTINUOUS PROTONIX GTT. NEW IV STARTED IN LEFT AC FOR BLOOD TRANSFUSION.
[2021-06-05 03:47] VITALS: BP 145/70
[2021-06-05 03:48] LABS: HEMATOCRIT 24.1 % (37.0-47.0); HEMOGLOBIN 8.4 gm/dL (12.0-15.0); MCH 34.2 pg (26.0-34.0); MCHC 34.6 g/dL (28.0-37.0); RBC 2.44 mil/uL (4.20-5.00); RDW 17.2 % (10.5-14.5); WBC 6.8 thou/uL (4.0-11.0)
[2021-06-05 03:58] LABS: CALCIUM 8.3 mg/dL (8.5-10.1); CREATININE 0.8 mg/dL (0.6-1.0); POTASSIUM 4.6 mmol/L (3.5-5.1)
--- NOTE | 2021-06-05 06:46 | NUR ---
ASSESSMENTS CHARTED, MEDS CHARTED GIVEN. PATIENT RESTING IN BED DURING SHIFT. ALERT BUT DROWSY. DID NOT SLEEP WELL DURING THE SHIFT. PATIENT UNCOMFORTABLE IN BED CONSTANTLY REARRANGING HERSELF. SAYS IT IT RELATED TO METS IN THE PELVIC. KNAPP IN PLACE FOR RETENTION. UP WITH WALKER AND GAIT BELT, INCREASED WEAKNESS. PAIN CONTROL IS THE PATIENT'S PRIMARY CONCERN.OXYCODONE AND FENTANYL AVAILABLE. RECEIVED 1 UNIT PRBC YESTERDAY ON DAY SHIFT FOR LOW HBG. FALL PRECAUTIONS IN PLACE DURING SHIFT.
[2021-06-05 07:10] VITALS: BP 142/54
--- NOTE | 2021-06-05 08:22 | HC ---
[facility] [place] [address] CONSULTATION Name: JARROD CRAWFORD Room #: 202-P ADM IN M.R.#: [id number] Admission: 06/03/21 Attend Phys: Silas Small MD Discharge: Date of : 45 Report #: [id number] THIS REPORT FOR: cc: Vaibhav Virk Louis D. DO McKittrick, Richard James MD ~ cc: Silas Small MD, Jean Heredia MD, Vaibhav Virk DO, Lore Sawyer NP HISTORY OF PRESENT ILLNESS: The patient is a 76-year-old patient with a history of stage IV bronchoalveolar lung cancer who was admitted for weakness and fatigue that has been progressive. She had received her first and most recent round of carboplatin, pemetrexed, pembrolizumab on about 05/22/2021. She has a history of a bronchoalveolar lung cancer since 07/20/2018. It has been slowly progressive. Unfortunately, she was found to have brain mets, received radiation therapy that was completed on 05/12/2001. She also had development of cutaneous lesions in multiple areas, intramuscular lesions and hepatic lesions that was new and that resulted in initiation of chemotherapy. At this time, after receiving some opiates for abdominal back pain, she really does not have much complaint, is very foggy thinking. According to others when she came in last night she had the extreme fatigue, had had some constipation and had diarrhea after that. She also reports some black stool and also perhaps some blood in her stool. No fevers, no chest pain, no vomiting, no dysuria. She did have a vaccination in the past. PAST MEDICAL HISTORY: Notable for the non-small cell bronchoalveolar lung cancer from 07/2018, with slow progression until this summer, completed the radiation therapy as mentioned above and then got carboplatin, pembrolizumab, pemetrexed, also history of atrial fibrillation status post a procedure in the past. History of hyperlipidemia, history of hypertension, history of protein calorie malnutrition, history of osteopenia. 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 She lives in [place], nonsmoker recently. PHYSICAL EXAMINATION: VITAL SIGNS: Height is 5 feet 11 inches, 180.3 cm, weight 188 pounds 85.3 kilograms. Blood pressure is 120/48, respirations 18, pulse 96, temperature 99.0. GENERAL: At this time, she is somewhat slow to answer questions, having a hard time focusing. According to the nurse, this has been mostly since she received opioid, but that is where we are at this time. HEENT: Face is symmetrical. LUNGS: Have good symmetric and unlabored expansion. There may be some soft [facility] [address] [place] [address] CONSULTATION Name: JARROD CRAWFORD Room #: 202-P ADM IN M.R.#: [id number] Admission: 06/03/21 Attend Phys: Silas Small MD Discharge: Date of : 45 Report #: [id number] rhonchi that clear with a cough. No rales or wheezes. LYMPHATICS: No enlarged lymph nodes in the supraclavicular, cervical, axillary or inguinal region. ABDOMEN: Slightly distended, slightly uncomfortable on exam. EXTREMITIES: Without clubbing, cyanosis. There is some prior 2 mm edema at the mid woodruff. LABORATORY DATA: We have available notable for creatinine was 1.5 yesterday, 1.2 today. Electrolytes normal. AST 79, alkaline phosphatase 621, ALT 145, albumin 2.4. Iron panel acceptable. Coags pending. White count 6, hemoglobin 7.4 yesterday and today. MCV 105.3, was 101 yesterday, platelets 46 yesterday, today 69. We will continue watching. ANC 4400 yesterday. Folate 53.6, B12 of 5137. Cortisol ordered, not yet back. UA nonacute. RADIOLOGIC IMAGING THIS ADMIT: Chest x-ray from yesterday shows compared to 2018, development of left apical pleural based mass infiltration, which may be chronic. ASSESSMENT AND PLAN: 1. Bronchoalveolar non-small cell adenocarcinoma, status post first cycle of chemotherapy about 2 weeks ago. Await results of therapy. 2. Recent weakness and fatigue, unclear. Continue careful monitoring. 3. EKG and laboratory changes most consistent with non-ST elevated GA type 2 related to strain. Defer to Cardiology. 4. History of melena and hematochezia. The patient seen by GI. Deferring endoscopies at this time. The patient placed on PPI. 5. History of hypertension per others. 6. History of atrial fibrillation, thought to be in sinus rhythm per others. 7. Hyperlipidemia per others. 8. Osteopenia per others. 9. Mentation. Hopefully, related to medications. We will continue following. 10. Elevated liver function tests. Await abdominal ultrasound and serial tests. 11. Thrombocytopenia, likely related to chemotherapy, watch careful. Hopefully, this will recover and is related to chemotherapy, but we will check coags. 12. Anemia. Serial hemoglobin. Transfuse if dropping and to keep above 7. We will follow with you. <ELECTRONICALLY SIGNED> By: Rodriguez Fitzpatrick MD 06/05/21 0822 0746 Rodriguez Fitzpatrick MD /micheal
--- NOTE | 2021-06-05 08:22 | HC ---
[facility] [place] [address] CONSULTATION Name: JARROD CRAWFORD Room #: 202-P ADM IN M.R.#: [id number] Admission: 06/03/21 Attend Phys: Silas Small MD Discharge: Date of : 45 Report #: [id number] THIS REPORT FOR: cc: Vaibhav Virk Louis D. DO McKittrick, Richard James MD ~ cc: Silas Small MD, Jean Heredia MD, Vaibhav Virk DO, Lore Sawyer NP HISTORY OF PRESENT ILLNESS: The patient is a 76-year-old patient with a history of stage IV bronchoalveolar lung cancer who was admitted for weakness and fatigue that has been progressive. She had received her first and most recent round of carboplatin, pemetrexed, pembrolizumab on about 05/22/2021. She has a history of a bronchoalveolar lung cancer since 07/20/2018. It has been slowly progressive. Unfortunately, she was found to have brain mets, received radiation therapy that was completed on 05/12/2001. She also had development of cutaneous lesions in multiple areas, intramuscular lesions and hepatic lesions that was new and that resulted in initiation of chemotherapy. At this time, after receiving some opiates for abdominal back pain, she really does not have much complaint, is very foggy thinking. According to others when she came in last night she had the extreme fatigue, had had some constipation and had diarrhea after that. She also reports some black stool and also perhaps some blood in her stool. No fevers, no chest pain, no vomiting, no dysuria. She did have a vaccination in the past. PAST MEDICAL HISTORY: Notable for the non-small cell bronchoalveolar lung cancer from 07/2018, with slow progression until this summer, completed the radiation therapy as mentioned above and then got carboplatin, pembrolizumab, pemetrexed, also history of atrial fibrillation status post a procedure in the past. History of hyperlipidemia, history of hypertension, history of protein calorie malnutrition, history of osteopenia. 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 She lives in [place], nonsmoker recently. PHYSICAL EXAMINATION: VITAL SIGNS: Height is 5 feet 11 inches, 180.3 cm, weight 188 pounds 85.3 kilograms. Blood pressure is 120/48, respirations 18, pulse 96, temperature 99.0. GENERAL: At this time, she is somewhat slow to answer questions, having a hard time focusing. According to the nurse, this has been mostly since she received opioid, but that is where we are at this time. HEENT: Face is symmetrical. LUNGS: Have good symmetric and unlabored expansion. There may be some soft [facility] [address] [place] [address] CONSULTATION Name: JARROD CRAWFORD Room #: 202-P ADM IN M.R.#: [id number] Admission: 06/03/21 Attend Phys: Silas Small MD Discharge: Date of : 45 Report #: [id number] rhonchi that clear with a cough. No rales or wheezes. LYMPHATICS: No enlarged lymph nodes in the supraclavicular, cervical, axillary or inguinal region. ABDOMEN: Slightly distended, slightly uncomfortable on exam. EXTREMITIES: Without clubbing, cyanosis. There is some prior 2 mm edema at the mid woodruff. LABORATORY DATA: We have available notable for creatinine was 1.5 yesterday, 1.2 today. Electrolytes normal. AST 79, alkaline phosphatase 621, ALT 145, albumin 2.4. Iron panel acceptable. Coags pending. White count 6, hemoglobin 7.4 yesterday and today. MCV 105.3, was 101 yesterday, platelets 46 yesterday, today 69. We will continue watching. ANC 4400 yesterday. Folate 53.6, B12 of 5137. Cortisol ordered, not yet back. UA nonacute. RADIOLOGIC IMAGING THIS ADMIT: Chest x-ray from yesterday shows compared to 2018, development of left apical pleural based mass infiltration, which may be chronic. ASSESSMENT AND PLAN: 1. Bronchoalveolar non-small cell adenocarcinoma, status post first cycle of chemotherapy about 2 weeks ago. Await results of therapy. 2. Recent weakness and fatigue, unclear. Continue careful monitoring. 3. EKG and laboratory changes most consistent with non-ST elevated SD type 2 related to strain. Defer to Cardiology. 4. History of melena and hematochezia. The patient seen by GI. Deferring endoscopies at this time. The patient placed on PPI. 5. History of hypertension per others. 6. History of atrial fibrillation, thought to be in sinus rhythm per others. 7. Hyperlipidemia per others. 8. Osteopenia per others. 9. Mentation. Hopefully, related to medications. We will continue following. 10. Elevated liver function tests. Await abdominal ultrasound and serial tests. 11. Thrombocytopenia, likely related to chemotherapy, watch careful. Hopefully, this will recover and is related to chemotherapy, but we will check coags. 12. Anemia. Serial hemoglobin. Transfuse if dropping and to keep above 7. We will follow with you. Appended Furniture Fabricator - Dictated on 06/04/2021 8:51:36 AM ADDENDUM CURRENT MEDICATIONS: At the time include metoprolol 50 mg daily, Senokot 2 tabs daily, MiraLax 17 grams daily, pantoprazole on a drip, Zofran p.r.n., fentanyl p.r.n., IV fluids given as a drip, oxycodone 5 mg q. 4 p.r.n. [facility] [address] [place] [address] CONSULTATION Name: JARROD CRAWFORD Room #: 202-P [facility] IN [facility].#: [id number] Admission: 06/03/21 Attend Phys: Silas Small MD Discharge: Date of : 45 Report #: [id number] Rodriguez Fitzpatrick MD <ELECTRONICALLY SIGNED> By: Rodriguez Fitzpatrick MD 06/05/21 0822 0751 1250 Rodriguez Fitzpatrick MD /nt
--- NOTE | 2021-06-05 16:59 | NUR ---
Followup visit with pt at bedside for dc planning. SNF/HH recommendations per therapy. Pt sleepy but notes pain control is better. She was able to work with PT this morning and walked 45' with min assist with chrissie and min a for tx. She is open to SNF referrals at [facility]. Her sister is at bedside and she got the pt's spouse Nate on speaker phone. SNF options and benefits discussed. They are open to [facility], [facility] or [facility]. All three indicate they may have a bed available on Tuesday. Dc shoe lay out planner to fax referrals to all three for consideration. Will need ins auth. Pt would be interested in [facility] if she improves enough over the weekend to go directly home. Face sheet faxed to [facility]. SNF/[facility] SNF list left with the pt.
[2021-06-05 17:00] VITALS: BP 142/67
--- NOTE | 2021-06-05 19:11 | NUR ---
RECEIVED THE PATIENT CONSCIOUS AND ORIENTED.ON NASAL CANNULA AT 1LPM, SATURATING WELL.WITH KNAPP CATHETER INTACT.HAD AMBULATED TO THE CHAIR TODAY.ALL NEEDS ATTENDED.PAIN MANAGEMENT DONE THROUGHOUT THE SHIFT.
[2021-06-05 19:16] VITALS: BP 154/83
--- NOTE | 2021-06-06 03:25 | NUR ---
ASSESSMENTS CHARTED, MEDS CHARTED GIVEN. PATIENT RESTING IN BED DURING SHIFT. STILL ON MAINTENANCE GTT AND PROTONIX GTT. UNABLE TO GET COMFORTABLE FOR ANY LENGTH OF TIME. ON 1 LITER OXYGEN VIA NASAL CANULA. REQUESTING PAIN MEDS WITH MORE REGULARITY. FALL PRECAUTIONS IN PLACE DURING SHIFT.
[2021-06-06 04:10] LABS: ALBUMIN 2.1 g/dL (3.4-5.0); CALCIUM 7.9 mg/dL (8.5-10.1); CREATININE 0.8 mg/dL (0.6-1.0); DIRECT BILIRUBIN 0.4 mg/dL (<0.1-0.2); POTASSIUM 3.8 mmol/L (3.5-5.1); TOTAL BILIRUBIN 0.8 mg/dL (0.2-1.0); TOTAL PROTEIN 5.8 g/dL (6.4-8.2)
[2021-06-06 04:11] VITALS: BP 155/79
[2021-06-06 04:45] LABS: HEMATOCRIT 21.7 % (37.0-47.0); HEMOGLOBIN 7.6 gm/dL (12.0-15.0); MCH 34.5 pg (26.0-34.0); MCV 98.3 fL (80.0-100.0); RBC 2.21 mil/uL (4.20-5.00); RDW 16.5 % (10.5-14.5); WBC 6.4 thou/uL (4.0-11.0)
[2021-06-06 07:38] VITALS: BP 138/55
--- NOTE | 2021-06-06 13:43 | NUR ---
PT ALERT AND ORIENTED TIMES THREE, BUT SLOW TO RESPONE TO QUESTIONS. VSS, 1L O2. IVF AND PROTONIX GTT INFUSING PER ORDER. KNAPP TO DD. PT C/O PAIN PRN PAIN MEDICATION GIVEN WITH SOME RELEIF. PT TOLEARTES MEDS BUT HAS VERY POOR APPETITE. PT'S FAMILY MEMBER AT BEDSIDE. WILL CONTINUE TO MONITOR,
--- NOTE | 2021-06-06 14:00 | NUR ---
FAXED SNF REFERRAL AND NEGATIVE COVID RESULT (06/03/21) TO [facility]. CONFIRMED WITH [facility] THAT THEY COULD ACCEPT AND WOULD SUBMIT INSURANCE AUTHORIZATION IF PATIENT NOT RECEIVING CHEMO. FAXED REFERRAL TO [facility]. SPOKE TO SAUNDRA/MAHOGANY AT [facility] AND [facility] THAT BROCK IS PATIENT'S PRIVACY DIRECTOR ON TUESDAY, 06/03 AND WILL HAVE MORE INFORMATION REGARDING DISCHARGE PLANS TO A RETIREMENT FACILITY OR HOME. [facility] P [phone]; FAX [phone] [facility] P [phone]; FAX [phone] [facility] P [phone]; FAX [phone]; [facility] [phone] [facility] P [phone]; FAX [phone] [facility] P [phone]; FAX [phone]
[2021-06-06 17:18] VITALS: BP 160/73
[2021-06-06 19:06] VITALS: BP 163/84
--- NOTE | 2021-06-07 03:05 | NUR ---
RESUMED CARE OF PT AT 2130. UPON ARRIVAL TO THE UNIT PT WAS IN AFIB RVR WITH HR'S IN THE [address] MINOR WAS NOTIFIED, CARDIZEM BOLUS AND GTT INITIATED. AFTER 1 HR THE CARDIZEM GTT WAS AT 20MG/HR AND PT'S HR SUSTAINED 145-150. DR. MINOR WAS THUS NOTIFIED AGAIN, ORDERS GIVEN FOR ONE TIME DOSE OF FLECAINIDE 150MG PO. AFTER APPROXIMATELY ON HOUR, PT'S HR DECREASED TO 110-115; CARDIZEM GTT WAS DECREASED TO 1OMG/HR. PT CONTINUOUSLY REQUEST PAIN MEDICATION R/T PAIN IN BACK AND PELVIC AREA. KNAPP PATENT, NO BM. AFIB-SR PER MONITOR. VSS, AFEBRILE. LEFT HAND IV INFILTRATED, NEW IV INITIATED IN RIGHT FA. POSSIBLE [facility]. SLOW PROGRESS TOWARDS DC GOALS, WILL CONTINUE TO MONITOR.
[2021-06-07 03:46] VITALS: BP 101/54
[2021-06-07 07:45] VITALS: BP 108/65
[2021-06-07 11:53] VITALS: BP 103/57
--- NOTE | 2021-06-07 12:23 | EKG ---
[place] [address] [facility] [place] [address] ELECTROCARDIOGRAM REPORT Name: JARROD CRAWFORD Room #: 202-P ADM IN M.R.#: [id number] Admission: 06/03/21 Attend Phys: Silas Small MD Discharge: Date of : 45 Report #: [id number] [facility] Test Date: 2021-06-06 Test Time: 21:42:12 Pat Name: JARROD CRAWFORD Department: Room: 202 P Gender: F Supervisor Insecticide: TATI : 1945 Requested By: Silas Small Order Number: [id number] MD: Bhupinder Shearer Measurements Intervals [place] Rate: 154 P: MO: QRS: 43 QRSD: 67 T: -80 QT: 237 QTc: 380 Interpretive Statements Atrial fibrillation with rapid V-rate Low voltage, precordial leads Repolarization abnormality, prob rate related Compared to ECG 06/03/2021 11:57:26 Low QRS voltage now present Early repolarization now present Sinus rhythm no longer present Atrial premature complex(es) no longer present Electronically Signed On 06-07-2021 12:23:00 CDT by Bhupinder Shearer [email or web address] <ELECTRONICALLY SIGNED> By: Bhupinder Shearer MD 06/07/21 1223 41 41 Bhupinder Shearer MD /EPI
--- NOTE | 2021-06-07 17:06 | NUR ---
assumed care of pt at 0700. pt aox4 no acute distress. pain controlled with med regimen. afib controlled wtih cardizem gtt. flecainide added per cardio. converted to sinus. ivf infuising per order. calls out appropriately. son at [facility]. [facility].
[2021-06-07 17:17] VITALS: BP 114/59
[2021-06-07 19:31] VITALS: BP 123/60
[2021-06-07 23:45] VITALS: BP 111/47
[2021-06-08 02:58] LABS: HEMATOCRIT 21.6 % (37.0-47.0); HEMOGLOBIN 7.2 gm/dL (12.0-15.0); MCH 33.4 pg (26.0-34.0); MCHC 33.4 g/dL (28.0-37.0); MCV 99.8 fL (80.0-100.0); RBC 2.17 mil/uL (4.20-5.00); RDW 16.5 % (10.5-14.5); WBC 8.1 thou/uL (4.0-11.0)
[2021-06-08 04:45] VITALS: BP 115/55
[2021-06-08 07:27] VITALS: BP 129/49
--- NOTE | 2021-06-08 11:13 | NUR ---
Referrals to [facility], [facility]. Attempted to visit with patient on her preference and family at bedside requested I return as patient sleeping.
[2021-06-08 20:00] VITALS: BP 127/63
--- NOTE | 2021-06-08 20:42 | NUR ---
RECEIVED THE PATIENT CONSCIOUS AND ORIENTED.ON NASAL CANNULA AT 2LPM, SATURATING WELL.WITH KNAPP CATHETER INTACT.NOT IN DISTRESS.PAIN MANAGEMENT OBSERVED.HAD COMPLAINTS OF CONSTIPATION DESPITE REGULARLY GIVING ORAL LAXATIVES.LAXATIVE SUPPOSITORY GIVEN AND PATIENT WAS ABLE TO HAVE A BOWEL MOVEMENT LATER IN THE NIGHT.SAMPLE FOR STOOL OCCULT SENT.ALL NEEDS ATTENDED
[2021-06-09 04:35] VITALS: BP 125/54
[2021-06-09 05:19] LABS: WBC 10.2 thou/uL (4.0-11.0)
[2021-06-09 05:23] LABS: HEMATOCRIT 20.4 % (37.0-47.0); HEMOGLOBIN 6.9 gm/dL (12.0-15.0); MCH 34.1 pg (26.0-34.0); MCHC 33.9 g/dL (28.0-37.0); MCV 100.6 fL (80.0-100.0); RBC 2.03 mil/uL (4.20-5.00)
[2021-06-09 05:46] LABS: CALCIUM 7.8 mg/dL (8.5-10.1); CREATININE 1.5 mg/dL (0.6-1.0)
[2021-06-09 07:42] VITALS: BP 137/69
--- NOTE | 2021-06-09 08:04 | NUR ---
ALERT.FORGETFUL.UP WITH 2 PERSON ASSIST TO THE BEDSIDE COMMODE.O2 2L NC.MONITOR SHOWS SA.POC CONTINUED.
[2021-06-09 11:06] VITALS: BP 134/64
--- NOTE | 2021-06-09 12:44 | NUR ---
met with patient and dtr at [facility]. they plan to review facilities and have answer today of choice. patient to have transfusion today.
[2021-06-09 13:07] VITALS: BP 127/59; BP 144/69
[2021-06-09 14:33] LABS: OBSERVED RETIC COUNT 4.8 % (0.6-2.6)
--- NOTE | 2021-06-09 16:55 | NUR ---
ASSESSMENT CHARTED - MEDS PER DEC - GIVEN OXY FOR CO'S OF PAIN IN BACK. DARLIN SMA LL AMOUNT SOF DIET AND FLUIDS. UP TO THE BSC WITH PHYS THERAPY ASSIST. SMALL AMOUNT OF LOOSE STOOL . PT SEEN BY SPEECH THIS AM, DIET CHANGED TO MECH SOFT. PT GIVEN 1 UNIT PF PRBC FOR HEAM OF 6.9 DARLIN WELL. FAMILY AT THE BEDSIDE. RESTING AT THE PRESENT TIME.
[2021-06-09 19:26] VITALS: BP 160/74
[2021-06-09 20:01] VITALS: BP 144/83
[2021-06-10 03:33] LABS: CALCIUM 8.3 mg/dL (8.5-10.1); CREATININE 1.3 mg/dL (0.6-1.0); POTASSIUM 4.1 mmol/L (3.5-5.1)
[2021-06-10 05:57] VITALS: BP 129/62
[2021-06-10 06:54] LABS: HEMATOCRIT 25.6 % (37.0-47.0); HEMOGLOBIN 8.6 gm/dL (12.0-15.0); MCH 33.2 pg (26.0-34.0); MCHC 33.6 g/dL (28.0-37.0); MCV 98.8 fL (80.0-100.0); PLATELET COUNT 243 thou/uL (150-400); RBC 2.59 mil/uL (4.20-5.00); RDW 17.3 % (10.5-14.5); WBC 13.2 thou/uL (4.0-11.0)
[2021-06-10 08:24] VITALS: BP 140/64
[2021-06-10 09:44] LABS: MYELOCYTES 3 %
[2021-06-10 09:46] LABS: ANISOCYTOSIS 1+; LARGE PLATELETS OCCASIONAL; POIKILOCYTOSIS SLIGHT; POLYCHROMASIA SLIGHT
[2021-06-10 10:43] LABS: ABSOLUTE NEUTROPHILS 9.9 thou/uL (1.4-8.2); METAMYELOCYTES 3 %
[2021-06-10 10:44] LABS: NUCLEATED RBCS 3 /100WBC
[2021-06-10 11:05] LABS: URINE BLOOD 3+ (Negative); URINE CLARITY SL CLOUDY; URINE COLOR YELLOW; URINE GLUCOSE-RANDOM* NEGATIVE (Negative); URINE KETONES TRACE (Negative); URINE NITRITE-REFLEX NEGATIVE (Negative); URINE PROTEIN (DIPSTICK) 2+ (Negative); URINE SPECIFIC GRAVITY >= 1.030 (1.005-1.035)
[2021-06-10 11:09] LABS: URINE LEUKOCYTES-REFLEX 2+ (Negative)
[2021-06-10 11:11] LABS: ICTOTEST (BILI CONFIRMATORY) Negative (Negative); URINE BILIRUBIN NEGATIVE (Negative)
[2021-06-10 11:16] VITALS: BP 133/61
[2021-06-10 11:28] LABS: BACTERIA-REFLEX 1-9 Few /HPF (None Seen); CASTS None Seen /LPF (None Seen); CRYSTALS None Seen /LPF (None Seen); SQUAMOUS 0-3 Few /LPF (0-3); URINE RBC 1-2 Rare /HPF (NONE SEEN); WBC CLUMPS Few (None Seen)
--- NOTE | 2021-06-10 14:22 | NUR ---
Spoke with spouse their first choice for skilled rehab is [facility]. Faxed clinical information. Sp with Silas in admissions. They are reviewing.
[2021-06-10 15:51] VITALS: BP 134/45
--- NOTE | 2021-06-10 17:10 | NUR ---
ASSUMED CARE SHIFT CHANGE.VSS. C/O PAIN MANAGED WITH PO AND IV PAIN MEDS. O2 SATS WNL 4L O2. UP WITH PHYS THERAPY DARLIN FAIR. DAUGHTER UPDATED ON POC. PT DARLIN PUREED DIET. CONT POC. WILL PASS REPORT TO JAN BERG.
[2021-06-10 19:41] VITALS: BP 124/54
[2021-06-11 03:47] LABS: HEMATOCRIT 23.3 % (37.0-47.0); HEMOGLOBIN 7.9 gm/dL (12.0-15.0); MCH 33.4 pg (26.0-34.0); MCHC 33.8 g/dL (28.0-37.0); MCV 98.6 fL (80.0-100.0); RBC 2.36 mil/uL (4.20-5.00); RDW 17.7 % (10.5-14.5); WBC 13.3 thou/uL (4.0-11.0)
[2021-06-11 04:10] LABS: ALBUMIN 1.8 g/dL (3.4-5.0); CALCIUM 7.9 mg/dL (8.5-10.1); CREATININE 1.3 mg/dL (0.6-1.0); MAGNESIUM 1.8 mg/dL (1.8-2.4); POTASSIUM 3.7 mmol/L (3.5-5.1); TOTAL BILIRUBIN 0.9 mg/dL (0.2-1.0); TOTAL PROTEIN 5.2 g/dL (6.4-8.2)
[2021-06-11 04:45] VITALS: BP 149/79
[2021-06-11 05:15] LABS: PLATELET COUNT 164 thou/uL (150-400)
[2021-06-11 07:14] VITALS: BP 153/70
[2021-06-11 09:13] LABS: ATYPICAL LYMPHS 1 %; METAMYELOCYTES 6 %; MYELOCYTES 1 %; NUCLEATED RBCS 6 /100WBC; PLATELET ESTIMATE NORMAL
[2021-06-11 11:38] VITALS: BP 127/62
--- NOTE | 2021-06-11 12:21 | NUR ---
Consult rec'd and hospice referral discussed with pt's spouse/dtr/sister. Pt now on comfort measures/DNR this am. Approval per community relations police lieutenant for family members at bedside. Son Piter Still flying in [facility]. Security notified to allow him in to visit. GIP inpt hospice referral discussed with family, they prefer this vs trying to get her home. Pt asking for last rights. Spiritual care notified and they are contacting the pt's parish. Referral faxed to [facility]. Support provided. Pt having uncontrolled pain this am and nursing was able to get new orders and administer iv pain meds for comfort. All parties updated. [facility] BERG will be here this afternoon to eval for GIP.
[2021-06-11] MEDS ORDERED: ACETAMINOPHEN325 M1 PO (14:43)
[2021-06-11] MEDS ORDERED: TAMBOCOR 100 M100 M1 PO (14:43)
[2021-06-11] MEDS ORDERED: LORAZEPAM I2 MG/1 M2 SUBLING (14:43)
[2021-06-11] MEDS ORDERED: LORAZEPAM 0.50.5 MG PO (14:43)
[2021-06-11] MEDS ORDERED: LEXAPRO 10 MG T10 M1 PO (14:43)
[2021-06-11] MEDS ORDERED: MIRALAX17 GM PO (14:43)
[2021-06-11] MEDS ORDERED: MORPHINE S100 MG/51 SUBLING (14:43)
[2021-06-11] MEDS ORDERED: LIDOPATCH1 EACH TRANSDERM (14:43)
[2021-06-11] MEDS ORDERED: OXYCODONE HCL 55 MG PO (14:43)
[2021-06-11 15:41] VITALS: BP 139/61
--- NOTE | 2021-06-11 18:03 | NUR ---
RECEIVED THE PATIENT CONSCIOUS BUT DROWSY.ON NASAL CANNULA AT 4LPM.PATIENT IS IN PAIN, PAIN MANAGEMENT OBSERVED.DOCTOR SPOKE WITH THE RELATIVES AND DECIDED TO PUT PATIENT ON DNR AND COMFORT CARE. COMFORT CARE OBSERVED AND PAIN MANAGEMENT DONE ORDERED.ALL NEEDS ATTENDED. DISCHARGED PATIENT FROM INPATIENT CCU AND TO BE TRANSFERED TO INPATIENT HOSPICE FOR COMFORT CARE.
== END 2021-06-11 16:46 | disposition hospice, inpatient (51) | DRG 377 ==
LOC: ER 10:50 → EROBS 15:26 → 2N 15:26
PROVIDERS: Internal Medicine; Internal Medicine Hematology & Oncology; Nurse Practitioner; Specialist; Student in an Organized Health Care Education/Training Program; ADMIT Hospitalist; ATTEND Hospitalist
PROC: 30233N1 Transfusion of Nonautologous Red Blood Cells into Peripheral Vein, Percutaneous Approach (ICD-10-PCS; principal; 2021-06-04)
DX: K92.1 Melena (principal); I21.A1 Myocardial infarction type 2; N17.0 Acute kidney failure with tubular necrosis; J96.01 Acute respiratory failure with hypoxia; J18.9 Pneumonia, unspecified organism; E43 Unspecified severe protein-calorie malnutrition; D62 Acute posthemorrhagic anemia; C34.90 Malignant neoplasm of unspecified part of unspecified bronchus or lung; C79.31 Secondary malignant neoplasm of brain; C78.7 Secondary malignant neoplasm of liver and intrahepatic bile duct; N39.0 Urinary tract infection, site not specified; I13.0 Hypertensive heart and chronic kidney disease with heart failure and stage 1 through stage 4 chronic kidney disease, or unspecified chronic kidney disease; Z20.822 Contact with and (suspected) exposure to COVID-19; K21.9 Gastro-esophageal reflux disease without esophagitis; I50.9 Heart failure, unspecified; I48.0 Paroxysmal atrial fibrillation; N18.9 Chronic kidney disease, unspecified; D69.6 Thrombocytopenia, unspecified; R74.01 Elevation of levels of liver transaminase levels; E86.0 Dehydration; M54.9 Dorsalgia, unspecified; E78.5 Hyperlipidemia, unspecified; M85.80 Other specified disorders of bone density and structure, unspecified site; G89.3 Neoplasm related pain (acute) (chronic); K59.09 Other constipation; K76.9 Liver disease, unspecified; R53.81 Other malaise; R13.10 Dysphagia, unspecified; D63.8 Anemia in other chronic diseases classified elsewhere; Z87.891 Personal history of nicotine dependence; Z79.01 Long term (current) use of anticoagulants; Z68.26 Body mass index [BMI] 26.0-26.9, adult
CPT/HCPCS: 10081

== ENCOUNTER 2021-06-11 14:37 | Inpatient (IN) | payer OTHER ==
[2021-06-11] MEDS ORDERED: MORPHINE S100 MG/51 SUBLING (14:43)
[2021-06-11] MEDS ORDERED: OXYCODONE HCL 55 MG PO (14:43)
[2021-06-11] MEDS ORDERED: LORAZEPAM 0.50.5 MG PO (14:43)
[2021-06-11] MEDS ORDERED: LEXAPRO 10 MG T10 M1 PO (14:43)
[2021-06-11] MEDS ORDERED: ACETAMINOPHEN325 M1 PO (14:43)
[2021-06-11] MEDS ORDERED: LIDOPATCH1 EACH TRANSDERM (14:43)
[2021-06-11] MEDS ORDERED: TAMBOCOR 100 M100 M1 PO (14:43)
[2021-06-11] MEDS ORDERED: MIRALAX17 GM PO (14:43)
[2021-06-11] MEDS ORDERED: LORAZEPAM I2 MG/1 M2 SUBLING (14:43)
--- NOTE | 2021-06-11 18:06 | NUR ---
PATIENT IS ADMITTED IN INPATIENT HOSPICE FOR COMFORT CARE.COMFORT MEASURES OBSERVED.ALL NEEDS ATTENDED.
--- NOTE | 2021-06-12 08:19 | NUR ---
PT INPATIENT HOSPICE CARE. FAMILY AT BEDSIDE. PRN SL MEDICATIONS INITIATED AT PT REQUEST. PT NOW RESTING COMFORTABLY ON LEFT SIDE. PT A&OX4. PT AND FAMILY EDUCATED ON EOL HOSPICE CARE. ALL VERBALIZED UNDERSTANDING.
--- NOTE | 2021-06-12 14:41 | NUR ---
[facility] harness cutter, kimberlyn indicated pt is declining and she edu family on /dying process. pt bp "is still prett good at 93/53." dpoa on file.
--- NOTE | 2021-06-12 15:48 | NUR ---
PT WITH INCREASED RESTLESSNESS. PRN COMFORT CARE HAS BEEN USED DURING DAY. PT HAS SHALLOW BREATHING. HR NOW IN MID 80'S. PHYSICIAN UPDATED.
--- NOTE | 2021-06-12 18:22 | NUR ---
PT CONTINUES COMFORT CARE/HOSPICE CARE. BILLING ANALYST HAS PROVIDED PERMISSION TO ONE FAMILY MEMBER TO SPEND THE NIGHT WITH PT.
--- NOTE | 2021-06-13 05:30 | NUR ---
ASSUMED CARE OF PT AT 1900, DAUGHTER AT BEDSIDE. PT ASLEEP IN NO APPARENT DISTRESS, WITH MORPHINE PUMP RUNNING AT 2MCG. AT 0116 DAUGHTER REQUESTED NURSE TO ASSESS PT, PT WAS IN DISCOMFORT ATIVAN GIVEN AT THIS TIME AND MORPHINE INCREASED TO 3 FOR COMFORT AND AIR HUNGER. AT 0240 PT BEGAN CHEYENE-MIKE BREATHING MORPHINE INCREASED TO 4 FOR COMFORT. AT 0320 PT HEART RATE DECREASED TO 45BPM, NOTIFIED DAUGHTER AT BEDSIDE OF CHANGE, PT PRONOUNCED AT 0323. FAMILY NOTIFIED, MTN NOTIFIED, ADMITTING DOCTOR ALONG WITH ALL CONSULTING DOCTORS. POST MORTOM CARE COMPLETED, BODY RELEASED TO SECURITY.
== END 2021-06-13 03:23 | DRG 180 ==
LOC: 2N 14:37
PROVIDERS: ADMIT Internal Medicine; ATTEND Internal Medicine
DX: C34.90 Malignant neoplasm of unspecified part of unspecified bronchus or lung (principal); J96.01 Acute respiratory failure with hypoxia; I21.4 Non-ST elevation (NSTEMI) myocardial infarction; G92 Toxic encephalopathy; E43 Unspecified severe protein-calorie malnutrition; J18.9 Pneumonia, unspecified organism; C78.7 Secondary malignant neoplasm of liver and intrahepatic bile duct; N17.9 Acute kidney failure, unspecified; N39.0 Urinary tract infection, site not specified; C79.70 Secondary malignant neoplasm of unspecified adrenal gland; D62 Acute posthemorrhagic anemia; C79.31 Secondary malignant neoplasm of brain; K21.9 Gastro-esophageal reflux disease without esophagitis; R79.89 Other specified abnormal findings of blood chemistry; R53.81 Other malaise; E78.5 Hyperlipidemia, unspecified; I11.0 Hypertensive heart disease with heart failure; I50.9 Heart failure, unspecified; K57.90 Diverticulosis of intestine, part unspecified, without perforation or abscess without bleeding; I48.0 Paroxysmal atrial fibrillation; Z51.5 Encounter for palliative care; Z66 Do not resuscitate; Z79.899 Other long term (current) drug therapy; Z92.21 Personal history of antineoplastic chemotherapy
CPT/HCPCS: 10797